=== PATIENT | female | born 1985 | race Caucasian/White ===

== ENCOUNTER 2017-02-14 11:35 | Inpatient (IN) | payer BC ==
[2017-02-14] MEDS: ELECTROLYTE-148 SOLN 1,000 ML IV SCH (11:45)
[2017-02-14] MEDS ORDERED: oxyCODONE HCL 5 MG TABLET PO PRN (12:33)
[2017-02-14] MEDS ORDERED: METHYLERGONOVINE MALEATE 0.2 MG/1 ML AMP IM PRN (12:33)
[2017-02-14] MEDS ORDERED: CITRIC ACID/SODIUM CITRATE 30 ML UNIT-DOSE CUP PO ONE ×2 (12:33)
--- NOTE | 2017-02-14 12:33 | HP ---
Admitting History and Physical - Admission History of Present Illness: 31 y/o for repeat cs today. She is a pt of [facility], hiv neg, gbs neg, rpr neg, rubella History Source: Patient Limitations to Obtaining History: No Limitations, Clinical Condition, Dementia, Intoxication, Intubated, Language Barrier, Physical Impairment, Poor Historian, Uncooperative, Unresponsive, Other - Past Medical History LAST MODEL MAKER: No: Alzheimer's, CVA, Dementia, Migraine, Multiple Sclerosis, Peripheral Neuropathy, Parkinson's, Seizure, Syncope, TIA, Vertigo, Other Cardiovascular: No: AFIB, Aneurysm, Aortic Insufficiency, Aortic Stenosis, CAD, CHF, Deep Vein Thrombosis, HTN, Hyperlipdemia, UT, Mitral Insufficiency, Mitral Stenosis, Murmur, Pulmonary Hypertension, Other Pulmonary: No: Asthma, Bronchitis, Cancer, COPD, O2 Dependent, Pneumonia, Previously Intubated, Pulmonary Embolus, Pulmonary Fibrosis, Sleep Apnea, Other Gastrointestinal: No: Ascites, Cancer, Constipation, Crohn's Disease, Diverticulitis, Diverticulosis, Esophageal Varices, Gastritis, GERD, GI Bleed, Hemorrhoids, Hiatal Hernia, Inflamatory Bowel Disease, Irritable Bowel Disease, Pancreatitis, Peptic Ulcer Disease, Ulcerative Colitis, Other Hepatobiliary: No: Cirrhosis, Cholelithiasis, Cholecystitis, Choledocholithiasis , Hepatitis A, Hepatitis B, Hepatitis C, Other Renal/: No: Renal Failure, Renal Inusuff, BPH, Cancer, Hematuria, Hemodialysis , Neurogenic Bladder, Renal Calculi, UTI, Other Reproductive: No: Ectopic , Endometriosis, Fibroids, PID, Polycystic Ovary Syndrome, Postmenopausal, Other Heme/Onc: No: Anemia, B12 Deficiency, Bleeding Disorder, Cancer, Current Chemotherapy, Current Radiation Therapy, Hemochromatosis, Hypercoaguable State, Myeloproliferative Synd, Sickle Cell Disease, Sickle Cell Trait, Thrombocytopenia, Other Infectious Disease: No: AIDS, C-Diff, Herpes Zoster, HIV, MRSA, STD's, Tuberculosis, VREF, Other Psych: No: Addictions, Anxiety, Bipolar, Depression, Panic, Psychosis, Schizophrenia, Other Musculoskeletal: No: Bursitis, Chronic low back pain, Hemiparesis, Hemiplegia, Osteoarthritis, Paraplegia, Other Rheumatology: No: Fibromyalgia, Gout, Lupus, Rheumatoid Arthritis, Sarcoidosis, Vasculitis, Other Endocrine: No: Dixie's Disease, Ashley's Disease, Diabetes Insipidus, Diabetes Mellitus, Hyperparathyroidism, Hyperthyroidism, Hypothyroidism, Osteopenia, SIADH, Other Dermatology: No: Basal Cell, Cellulitis, Eczema, Melanoma, Psoriasis, Squamous Cell, Other - Past Surgical History Past Surgical History: No: None, AAA Repair, AICD, Amputation, Appendectomy, Arthrosocopy, AV Fistula/Graft, Bariatric Surgery, Breast Biopsy, Bypass, CABG, Carotid Endarterectomy, Cataract Removal, Cholecystectomy, Colectomy, Colonoscopy, Colostomy, Craniotomy, , Cystectomy, Hernia Repair, Hysterectomy, Ileal Conduit, Ileosotomy, Joint Replacement, Kidney Transplant, Laminectomy, Liver Transplant, Mastectomy, Nephrectomy, Oopherectomy, Orchiectomy, Permanent Pacemaker, Prostatectomy, Splenectomy, Stent, Thoracotomy , TURP, Tonsillectomy, Tubal Ligation, Upper Endoscopy, Valve Replacement, Vasectomy, Vein Stripping/Ligation - Advance Directives Advance Directives: No: Living Will, Health Care Proxy, DNR, Organ Donor, Tissue Donor, MOLST - Alcohol/Substance Use History of Substance Use: denies: None, Cocaine, Heroin, Marijuana, Prescription , Tranquilizers - Social History Usual Living Arrangement: No: Alone, With Spouse, With Parent, With Significant Other, With Child, Assisted Living, Usp, Other Review of Systems - Review of Systems Constitutional: reports: No Symptoms Eyes: reports: No Symptoms HENT: reports: No Symptoms Neck: reports: No Symptoms Cardiovascular: reports: No Symptoms Respiratory: reports: No Symptoms Gastrointestinal: reports: No Symptoms Genitourinary: reports: No Symptoms Breasts: denies: No Symptoms Reported, See HPI, Breast Implants, Discharge from Nipple, Lumps, Pain, Skin Changes, Other Musculoskeletal: denies: No Symptoms, Back Pain, Crepitus, Decreased ROM, Extremity Pain, Joint Pain, Joint Swelling, Muscle Pain, Muscle Cramps, Muscle Weakness, Other Integumentary: denies: No Symptoms, Blister, Bruising, Change in Color, Eczema, Erythema, Incision, Lesions, Lump, Pallor, Pruritis, Rash, Wound, Other Endocrine: reports: No Symptoms Hematology/Lymphatic: reports: No Symptoms Psychiatric: reports: No Symptoms Physical Examination Constitutional: Yes: Well Nourished Eyes: Yes: WNL HENT: Yes: WNL Neck: Yes: WNL Cardiovascular: Yes: WNL Respiratory: Yes: WNL Gastrointestinal: Yes: WNL Renal/: Yes: WNL Breast(s): Yes: WNL Musculoskeletal: Yes: WNL Extremities: Yes: WNL Assessment/Plan as asbove admit labs consents
[2017-02-14] MEDS ORDERED: ELECTROLYTE-148 SOLN 1,000 ML IV SCH (12:45)
[2017-02-14 12:50] VITALS: BMI 29.7
[2017-02-14] MEDS ORDERED: morphine SULFATE/Preservative Free 0.5 MG/ML (1cc Syringe) SPIN ONE (13:08)
[2017-02-14] MEDS ORDERED: ONDANSETRON 4 MG/2 ML VIAL IVPB PRN (13:08)
[2017-02-14] MEDS: OXYTOCIN 20 UNITS in 0.9% NS 1,000 ML IV SCH ×2 (14:59→22:17)
[2017-02-15] MEDS: ACETAMINOPHEN 325 MG TABLET (FP) PO PRN ×2 (04:58→18:16)
[2017-02-15] MEDS: SIMETHICONE 80 MG TAB.CHEW (FP) PO PRN ×2 (04:58→18:16)
[2017-02-15] MEDS: IBUPROFEN 600 MG TABLET (FP) PO PRN ×2 (04:59→18:14)
[2017-02-15] MEDS: OXYTOCIN 20 UNITS in 0.9% NS 1,000 ML IV SCH (06:22)
[2017-02-15 08:03] LABS: BASOPHIL 0.4 % (0-2.0); MCH 29.9 pg (25.7-33.7); MCHC 34.1 g/dl (32.0-36.0); MEAN CELL VOLUME 87.5 fl (80-96); MEAN PLT VOLUME 8.4 fl (7.5-11.1); NEUTROPHILS 74.7 % (42.8-82.8); PLATELET COUNT 145 K/MM3 (134-434); RDW 14.2 % (11.6-15.6); WHITE BLOOD COUNT 6.1 K/mm3 (4.0-10.0)
--- NOTE | 2017-02-15 10:15 | PN ---
Progress Note (short form) - Note Progress Note: pod 1 doing well sitting in chair CBC, BMP 02/15/17 06:00 Last Vital Signs Temp Pulse Resp BP Pulse Ox 98.4 F 63 20 99/61 100 02/15/17 07:15 02/15/17 07:15 02/15/17 08:00 02/15/17 07:15 02/14/17 14:45 abdomen soft, no distension, no cva incision dry. clean no calf tenderness , no excess vaginal bleeding plan ambulate, advance diet, pain management
[2017-02-15] MEDS ORDERED: BISACODYL 10 MG SUPP.RECT RC PRN (12:34)
[2017-02-15] MEDS ORDERED: SODIUM CHLORIDE 1,000 ML IV SCH (16:30)
--- NOTE | 2017-02-15 17:57 | PN ---
Progress Note (short form) - Note Progress Note: Anesthesiology Post-op POD#1 s/p C/S under spinal anesthesia. Pt. had c/o some dizziness earlier but feels better now. She is walking and able to urinate without difficulty. Denies h/a. VSS.
[2017-02-15] MEDS ORDERED: INFLUENZA VACCINE 60 MCG/0.5 ML (P/F DISP.SYRIN 16-17) IM ONE (19:00)
[2017-02-15] MEDS ORDERED: INFLUENZA VACCINE 45 MCG/0.5 ML (MDV 16-17) IM ONE (19:00)
[2017-02-15] MEDS ORDERED: DIPHTH,PERTUSS(ACELL),TET 0.5 ML DISP.SYRIN IM ONE (19:00)
--- NOTE | 2017-02-16 11:20 | PN ---
Progress Note (short form) - Note Progress Note: pod 2 doing well, ambulating CBC, BMP 02/15/17 06:00 Last Vital Signs Temp Pulse Resp BP Pulse Ox 97.6 F 59 L 16 107/62 100 02/16/17 10:00 02/16/17 10:00 02/16/17 10:00 02/16/17 10:00 02/14/17 14:45 abdomen soft, no cva , uterus firm incision dry, clean no calf tenderness plan ambulate, cbc in am
[2017-02-16] MEDS: OXYTOCIN 20 UNITS in 0.9% NS 1,000 ML IV SCH (16:07)
[2017-02-16] MEDS: ELECTROLYTE-148 SOLN 1,000 ML IV SCH (16:07)
[2017-02-16] MEDS: SIMETHICONE 80 MG TAB.CHEW (FP) PO PRN (20:55)
[2017-02-16] MEDS: IBUPROFEN 600 MG TABLET (FP) PO PRN (20:55)
[2017-02-16] MEDS: ACETAMINOPHEN 325 MG TABLET (FP) PO PRN (20:56)
[2017-02-17 08:28] VITALS: BP 114/74; PULSE 59; TEMP 98.4
[2017-02-17 08:53] LABS: BASOPHIL 0.5 % (0-2.0); EOSINOPHIL 1.5 % (0-4.5); MCH 29.8 pg (25.7-33.7); MCHC 33.8 g/dl (32.0-36.0); MEAN CELL VOLUME 88.3 fl (80-96); MEAN PLT VOLUME 8.7 fl (7.5-11.1); NEUTROPHILS 66.6 % (42.8-82.8); PLATELET COUNT 174 K/MM3 (134-434); RDW 14.2 % (11.6-15.6); WHITE BLOOD COUNT 5.8 K/mm3 (4.0-10.0)
--- NOTE | 2017-02-20 13:48 | PATH ---
Surgical Pathology Report Patient Name: SATINDER JOHNSON Med. Rec. 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 Specimen(s) Received PLACENTA Clinical History 39.2 weeks IUP, previous c/section x2 Repeat c/section Final Diagnosis PLACENTA, DELIVERY: INTACT THIRD TRIMESTER PLACENTA WITH MODERATE INCREASE IN PREVILLOUS, PERIVILLOUS, AND PRECHORIONIC FIBRIN DEPOSITION, DYSTROPHIC CALCIFICATIONS, THREE VESSEL UMBILICAL CORD, AND PLACENTAL MEMBRANES WITH FOCAL AMNION HYPERPLASIA AND FOCAL EARLY ACUTE CHORIOAMNIONITIS. Electronically Signed Herman Coello M.D. Gross Description The specimen is received fresh, labeled "placenta" and is a 421 gram, 14.0 x 14.0 x 2.7 cm placenta with attached membranes and umbilical cord. The attached membranes are stanton, translucent with focal opacities and insert marginally. The umbilical cord measures 24 cm in length and averages 1.3 cm in diameter. The cord inserts eccentrically, 3 cm to the nearest margin. No true knots or strictures are identified. Cut surface of the umbilical cord reveals 3 vessels. The surface is verdugo-blue with fibrin deposition and appropriate caliber vessels. The maternal surface is red-brown and intact. Sectioning reveals red-brown, spongy parenchyma. No focal lesions are identified. Manager Environmental Health sections are submitted in three cassettes as follows: 1- membrane rolls and umbilical cord; 2-3- full thickness sections of placenta. /02/19/2017 [facility]02/19/2017
--- NOTE | 2017-04-05 11:17 | OP ---
DATE OF OPERATION: DATE OF DICTATION: 04/04/2017 HISTORY OF PRESENT ILLNESS: A 32-year-old female with prior section for repeat section. OPERATING SURGEON: Poornima Gutierrez MD MARINA SALES AND SERVICE SUPERVISOR: ASYA Britton COMPLICATIONS: None. FINDINGS: Single live , Apgars of 8 and 9. Normal tubes, ovaries, and placenta. ANESTHESIA: Spinal anesthesia. ESTIMATED BLOOD LOSS: 500 mL. DISPOSITION: To recovery room in stable alert condition. PROCEDURE: Patient was consented prior to entering the operating room suite. Patient put on table in dorsal supine position. Prepped and draped in the usual sterile fashion. A low Pfannenstiel incision was carried down to the level of the fascia. The fascia was then transected to the left and right of the midline. This was then opened and teased away from the underlying rectus abdominis muscle. The peritoneum was then identified and then opened sharply as well as bluntly. The gravid uterus was then identified. A bladder flap was created using a smooth pickup and Metzenbaum scissor. Afterwards, a transverse incision on the uterus was made. A gush of fluid was then identified. The infant was then delivered atraumatically through the incision. The cord was then clamped and cut and the infant was then handed off to the waiting wash oil cooler operator. At this time, the placenta had been removed. The inferior aspect of the uterus was cleaned with a semi-wet lap pad. The uterus was then closed with a double layer of Biosyn suture. The right and left paracolic gutters were inspected and no gross bleeding identified. The muscle was then put together with chromic suture. The peritoneum was then closed as well. The fascia was then closed with Biosyn suture. The skin rosemary were applied. The patient was sent to the recovery room in stable alert condition. POORNIMA GUTIERREZ M.D. TATA/[id number]
--- NOTE | 2017-04-23 15:20 | DS ---
DATE OF ADMISSION: 02/14/2017 DATE OF DISCHARGE:02/17/2017 DATE OF DICTATION: 04/16/2017 The patient was seen throughout her hospital course and noted to be doing well. No issues or concerns. The patient was subsequently discharged home to be followed up in the office. POORNIMA VALENZUELA M.D. [id number]
== END 2017-02-17 12:00 | disposition home or self-care (01) | DRG 766 ==
LOC: JLDR 11:35 → J3W 15:46
PROVIDERS: ADMIT Obstetrics & Gynecology; ATTEND Obstetrics & Gynecology
PROC: 10D00Z1 Extraction of Products of Conception, Low, Open Approach (ICD-10-PCS; principal; 2017-02-14)
DX: O34.211 Maternal care for low transverse scar from previous cesarean delivery (principal); Z3A.39 39 weeks gestation of pregnancy; Z37.0 Single live birth
CPT/HCPCS: 36415; 85025; 88307-TC; 90686; 90715; G0008; Q2037

== ENCOUNTER 2023-03-31 08:42 | Emergency (ER) | payer BC, OTHER ==
[2023-03-31 08:53] VITALS: BMI 26.4
[2023-03-31] MEDS ORDERED: SODIUM CHLORIDE 0.9% 500 ML INFUS.BAG IV ONE (09:39)
[2023-03-31] MEDS ORDERED: ACETAMINOPHEN 1000 MG/100 ML BAG IVPB ONE (09:39)
[2023-03-31] MEDS ORDERED: ACETAMINOPHEN INJECTION 100 ML IVPB ONE (10:04)
[2023-03-31 10:37] LABS: BASO % 0.4 % (0-2.0); EOS % 0.4 % (0-4.5); HEMOGLOBIN 13.1 GM/dL (10.7-15.3); LYMPH % 16.2 % (8-40); MCH 29.3 pg (25.7-33.7); MCHC 34.3 g/dl (32.0-36.0); MEAN CELL VOLUME 85.4 fl (80-96); MEAN PLT VOLUME 9.1 fl (7.5-11.1); MONO % 4.8 % (3.8-10.2); NEUT % 78.2 % (42.8-82.8); PLATELET COUNT 257 10^3/uL (134-434); RBC 4.45 M/mm3 (3.60-5.2); RDW 12.9 % (11.6-15.6); WHITE BLOOD COUNT 7.3 K/mm3 (4.0-10.0)
[2023-03-31 10:40] LABS: EPI CELLS 12 /uL (0-25.1); HYALINE CASTS 0 /uL (0-3.1); PH,URINE 6.5 (5.0-8.0); URINE APPEARANCE CLEAR; URINE BACTERIA 953 /uL (0-1359); URINE BILIRUBIN NEGATIVE (NEGATIVE); URINE COLOR YELLOW; URINE GLUCOSE (UA) NEGATIVE (NEGATIVE); URINE KETONE NEGATIVE (NEGATIVE); URINE LEUK ESTERASE NEGATIVE (NEGATIVE); URINE NITRITE NEGATIVE (NEGATIVE); URINE PROTEIN NEGATIVE (NEGATIVE); URINE RBC 32 /uL (0-23.9); URINE UROBILINOGEN 0.2 mg/dL (0.2-1.0); URINE WBC 5 /uL (0-25.8)
[2023-03-31 11:13] LABS: POTASSIUM 4.2 mmol/L (3.5-5.1)
[2023-03-31 11:16] LABS: CALCIUM 8.6 mg/dL (8.5-10.1)
[2023-03-31 11:17] LABS: ALBUMIN 3.7 g/dl (3.4-5.0); BLOOD UREA NITROGEN 11.6 mg/dL (7-18)
[2023-03-31 11:19] LABS: CREATININE 0.5 mg/dL (0.55-1.3)
[2023-03-31 11:21] LABS: TOT PROT 6.9 g/dl (6.4-8.2)
[2023-03-31] MEDS ORDERED: AMOX TR/POT CLAV 875MG/125MG TABLETS (FP) PO ONE (13:12)
[2023-03-31 13:38] VITALS: PULSE 60; RESP 20; TEMP 98
[2023-03-31 14:03] VITALS: BP 96/48
== END 2023-03-31 14:13 | disposition home or self-care (01) ==
LOC: JER 08:42
PROC: 3E033NZ Introduction of Analgesics, Hypnotics, Sedatives into Peripheral Vein, Percutaneous Approach (ICD-10-PCS; principal; 2023-03-31)
DX: R10.31 Right lower quadrant pain (principal); K57.92 Diverticulitis of intestine, part unspecified, without perforation or abscess without bleeding
CPT/HCPCS: 36415; 74177-TC; 80053; 81003; 84703; 85025; 87086; 87186; 96374; 99285-25; Q9967